=== PATIENT | male | born 1985 | race Caucasian/White ===

== ENCOUNTER 2017-11-19 17:09 | Inpatient (IN) | payer SELFPAY ==
[2017-11-19] MEDS ORDERED: NACL 0.9% 1000 ML 1,000 ML IV ONE (17:23)
[2017-11-19 19:04] LABS: Basophils % (Auto) 0.3 % (0.0-1.8); Eosinophils # (Auto) 0.1 K/mm3 (0.0-0.4); Hematocrit 44.1 % (35.5-45.6); Lymphocytes # (Auto) 1.1 K/mm3 (1.2-5.4); Lymphocytes % (Auto) 9.9 % (13.4-35.0); Mean Corpuscular HGB Conc 34 % (32-34); Mean Corpuscular Hemoglobin 31 pg (28-32); Mean Corpuscular Volume 92 fl (84-94); Monocytes # (Auto) 0.6 K/mm3 (0.0-0.8); Monocytes % (Auto) 5.7 % (0.0-7.3); Platelet Count 161 K/mm3 (140-440); Red Blood Count 4.81 M/mm3 (3.65-5.03); Red Cell Distribution Width 12.8 % (13.2-15.2)
--- NOTE | 2017-11-19 19:14 | XRay Report ---
FINAL REPORT EXAM: XR ABDOMEN 2V HISTORY: pain TECHNIQUE: Frontal upright view of the abdomen Comparison: None FINDINGS: The bowel gas pattern is nonspecific. There is a distended air-filled loop of small bowel in the left abdomen with an air-fluid level. There is a [id number] amount of stool in portions of the colon. There is no evidence of pneumoperitoneum nor organomegaly. The bony structures are unremarkable. IMPRESSION: 1. Nonspecific bowel gas pattern.
[2017-11-19 19:25] LABS: Alanine Aminotransferase 22 units/L (7-56); Albumin 4.7 g/dL (3.9-5); BUN/Creatinine Ratio 20; Blood Urea Nitrogen 16 mg/dL (9-20); Calcium 9.8 mg/dL (8.4-10.2); Hemolysis Index 8
[2017-11-19 20:06] LABS: Lipase 6137 units/L (13-60)
[2017-11-19] MEDS ORDERED: NACL 0.9% 1000 ML 2,000 ML IV ONE (23:53)
[2017-11-19] MEDS ORDERED: ZOFRAN IV ONE (23:53)
[2017-11-19] MEDS ORDERED: DILAUDID IV ONE (23:53)
--- NOTE | 2017-11-19 23:56 | Emergency Department Report ---
HPI - General Chief Complaint: Abdominal Pain Time Seen by Provider: 11/19/17 23:43 - HPI HPI: The patient is a 32-year-old male who presents for evaluation of abdominal pain. The patient reports epigastric abdominal pain for the past one day, moderate to severe, sharp in quality, associated with nausea. The patient denies fever, chills, night sweats, diarrhea, blood in the stool, dark tarry stool, dysuria, hematuria, flank pain, genital discharge, inability to pass flatus. ED Past Medical Hx - Past Medical History Additional medical history: appendix 2 years - Surgical History Hx Appendectomy: Yes (here at [facility]) - Social History Smoking Status: Current Every Day Smoker Substance Use Type: None - Medications Home Medications: Home Medications Medication Instructions Recorded Confirmed Last Taken Type HYDROcodone/APAP 5-325 [[place] 1 each PO Q4HR PRN #20 tablet 08/02/15 Unknown Rx 5/325] levoFLOXacin [Levaquin TAB] 500 mg PO QDAY #4 tablet 08/02/15 Unknown Rx metroNIDAZOLE [Flagyl] 500 mg PO Q8HR #12 tablet 08/02/15 Unknown Rx ED Review of Systems ROS: Stated complaint: APPENDIX REMOVED/PAIN Other details as noted in HPI Constitutional: denies: fever ENT: denies: throat or neck pain Respiratory: denies: cough, shortness of breath Cardiovascular: denies: chest pain Endocrine: denies unexplained weight loss or gain Gastrointestinal: reports: abdominal pain, nausea Genitourinary: denies: dysuria Musculoskeletal: denies: leg swelling Skin: denies: rash Neurological: denies: headache Hematological/Lymphatic: denies: easy bleeding or easy bruising Psych: denies sadness or hopelessness Physical Exam - Physical Exam Vital Signs: Vital Signs 11/19/17 17:14 Temperature 98.5 F Pulse Rate 60 Respiratory 18 Rate Blood Pressure 118/74 Physical Exam: General: well-nourished, well-developed, no acute distress Head: Normocephalic, atraumatic Eyes: normal sclera ENT: Mucous membranes are pink and moist Neck: trachea midline, neck supple, No neck stiffness, no cervical adenopathy Respiratory: Breath sounds equal bilaterally, no wheezing, rales, or rhonchi Cardio: S1 and S2 present, no murmurs, rubs, gallops, capillary refill is brisk Abdomen: Normoactive bowel sounds, soft abdomen, epigastric tenderness palpation present, no rigidity, no guarding or rebound tenderness Musc: No pitting edema Skin: No rash Neuro: no facial drooping, normal speech Psych: Normal affect ED Course Vital Signs 11/19/17 17:14 Temperature 98.5 F Pulse Rate 60 Respiratory 18 Rate Blood Pressure 118/74 ED Medical Decision Making - Lab Data Result diagrams: 11/19/17 18:32 11/19/17 18:32 - Medical Decision Making The patient was seen and examined by myself. The patient is placed on a quality assurance monitor chassis and continuous pulse ox. On initial evaluation, the patient was found to be in no distress. Evaluation orders are placed. IV access is established and the patient is given 1 L normal saline fluid bolus and Zofran for nausea, and IV analgesic for pain. Lab results reveal significant elevated lipase level, consistent with acute pancreatitis. CT scan abdomen and pelvis confirms acute pancreatitis. The patient was reevaluated and found to remain with epigastric pain despite multiple doses of IV analgesia. As patient pain is intractable patient will be admitted for continued cessation close monitoring. The on-call hospitalist service was contacted. They agreed to admit the patient for further treatment and close monitoring. The ED admit order was placed. The patient was admitted in guarded condition. Critical care attestation.: If time is entered above; I have spent that time in minutes in the direct care of this critically ill patient, excluding procedure time. ED Disposition Clinical Impression: Acute generalized abdominal pain, Nausea alone, Dehydration Acute pancreatitis Qualifiers: Pancreatitis type: unspecified pancreatitis type Acute pancreatitis complication: unspecified Qualified Code(s): K85.90 - Acute pancreatitis without necrosis or infection, unspecified Disposition: OP ADMIT IP TO THIS HOSP Is pt being admited?: Yes Does the pt Need Aspirin: Yes Condition: Serious Referrals: PRIMARY CARE, [Primary Care Provider] - 3-5 Days Time of Disposition: 23:56
[2017-11-20 00:33] LABS: INR 0.94 (0.87-1.13)
[2017-11-20 00:34] LABS: Partial Thromboplastin Time 26.6 Sec. (24.2-36.6)
[2017-11-20 00:39] LABS: Alanine Aminotransferase 22 units/L (7-56); Albumin 4.8 g/dL (3.9-5)
[2017-11-20 01:13] LABS: Bilirubin,Direct < 0.2 mg/dL (0-0.2)
--- NOTE | 2017-11-20 01:37 | Cat Scan Report ---
FINAL REPORT PROCEDURE: CT ABDOMEN PELVIS W CON TECHNIQUE: Computerized axial tomography of the abdomen and pelvis was performed after the IV injection of iodinated nonionic contrast. HISTORY: RLQ abdominal pain COMPARISON: 07/29/2015 FINDINGS: Visualized lower thorax: No significant abnormality. Liver: Normal size and attenuation. Spleen: Normal size and attenuation. Gallbladder and biliary system: Normal. Pancreas: There is peripancreatic edema suggesting pancreatitis. There is no intrinsic mass, abscess or pseudocyst.. Adrenals: Normal. Kidneys: Normal. GI tract: There is no bowel obstruction, colitis or enteritis. There has been an appendectomy per. Lymph nodes and mesentery: Normal. Vasculature: Normal. Bladder: Normal. Reproductive organs: Normal. Peritoneum: There is no ascites or free air, abscess or adenopathy.. Musculoskeletal structures: No significant abnormality. Other: None. IMPRESSION: Acute pancreatitis.
[2017-11-20] MEDS ORDERED: SUBLIMAZE IV ONE (01:39)
[2017-11-20] MEDS ORDERED: ZOFRAN IV ONE (01:39)
--- NOTE | 2017-11-20 01:45 | Ultrasound Report ---
FINAL REPORT PROCEDURE: US ABDOMEN LIMITED TECHNIQUE: Real-time sonography in multiple planes of the gallbladder fossa and CBD with imaging of the adjacent liver, pancreas, and right kidney was performed with image documentation. CPT 59078 HISTORY: RUQ and epigastric pain COMPARISON: No prior studies are available for comparison. FINDINGS: Liver: Normal size and echotexture with no evidence of cystic or solid mass lesion. Gallbladder: Fluid filled. No gallstones, wall thickening, pericholecystic fluid, or sonographic Gay's sign . Intrahepatic bile ducts: Normal . Extrahepatic bile ducts: Normal . Pancreas: Normal as visualized with suboptimal depiction of the pancreatic tail. Right kidney: Normal echotexture. No focal renal mass, calculus, or hydronephrosis. Other: No free fluid. IMPRESSION: Normal Examination
[2017-11-20] MEDS ORDERED: SODIUM CHLORIDE FLUSH SYRINGE 10 ML IV PRN (02:48)
[2017-11-20] MEDS ORDERED: ZOFRAN IV PRN (02:48)
[2017-11-20] MEDS ORDERED: PERCOCET 5/325 PO PRN (02:48)
[2017-11-20] MEDS ORDERED: TYLENOL PO PRN (02:48)
[2017-11-20] MEDS ORDERED: DILAUDID IV PRN (02:53)
[2017-11-20] MEDS ORDERED: NACL 0.9% 1000 ML 1,000 ML IV ONE (02:54)
[2017-11-20 03:10] LABS: Bilirubin,Urine NEG (Negative); Blood,Urine NEG (Negative); Color,Urine Yellow (Yellow); Mucus,Urine FEW /HPF; Protein,Urine <15 mg/dL mg/dL (Negative); Urobilinogen,Urine < 2.0 mg/dL (<2.0); WBC,Urine < 1.0 /HPF (0.0-6.0)
--- NOTE | 2017-11-20 03:46 | History and Physical Report ---
History of Present Illness Date of examination: 11/20/17 Date of admission: 11/20/17 02:48 Chief complaint: Upper abdominal pain History of present illness: Patient is a 32 year old male with no known past medical history who presented to the ED on account of a day history of epigastric pain. Of note, an per diem interpreter was used to obtain this history since patient speaks very little [place]. He described it as sharp in character, rated 10 over 10 and radiating to the sides. Pain waxes and wanes. No known aggravating or relieving factors. He denies nausea, vomiting, fever, chills, constipation, diarrhea, dysuria or frequency. No chest pain, shortness of breath, palpitation, cough, leg swelling, headaches, dizziness, syncope or loss of consciousness. No prior history of presenting complaint Past History Past Medical History: No medical history Past Surgical History: appendectomy Social history: smoking (he has been smoking cigarettes since 19 years old and currently smokes few sticks per day), alcohol abuse (patient has been drinking since 19 years old and he reports drinking liquor twice a week), other (he denies illicit drug use) Family history: no significant family history (reviewed and noncontributory) Medications and Allergies Allergies Allergy/AdvReac Type Severity Reaction Status Date / Time No Known Allergies Allergy Unverified 07/29/15 16:27 Home Medications Medication Instructions Recorded Confirmed Last Taken Type HYDROcodone/APAP 5-325 [[place] 1 each PO Q4HR PRN #20 tablet 08/02/15 Unknown Rx 5/325] levoFLOXacin [Levaquin TAB] 500 mg PO QDAY #4 tablet 08/02/15 Unknown Rx metroNIDAZOLE [Flagyl] 500 mg PO Q8HR #12 tablet 08/02/15 Unknown Rx Active Meds: Active Medications Acetaminophen (Tylenol) 650 mg PO Q4H PRN PRN Reason: Pain MILD(1-3)/Fever >100.5/AGGARWAL Docusate Sodium (Colace) 100 mg PO BID KRISTINE Famotidine (Pepcid) 20 mg IV DAILY KRISTINE Hydromorphone HCl (Dilaudid) 1 mg IV Q4H PRN PRN Reason: Pain , Severe (7-10) Sodium Chloride (Nacl 0.9% 1000 Ml) 1,000 mls @ 999 mls/hr IV BOLUS ONE Stop: 11/20/17 03:54 Sodium Chloride (Nacl 0.9% 1000 Ml) 1,000 mls @ 150 mls/hr IV DIRECT KRISTINE Ondansetron HCl (Zofran) 4 mg IV Q6H PRN PRN Reason: Nausea And Vomiting Oxycodone/Acetaminophen (Percocet 5/325) 1 tab PO Q4H PRN PRN Reason: Pain, Moderate (4-6) Sodium Chloride (Sodium Chloride Flush Syringe 10 Ml) 10 ml IV BID KRISTINE Sodium Chloride (Sodium Chloride Flush Syringe 10 Ml) 10 ml IV PRN PRN PRN Reason: LINE FLUSH Review of Systems All systems: negative (except as documented in the HPI, all other systems were reviewed and negative) Exam - Constitutional Vitals: Temp Pulse Resp BP Pulse Ox 98.9 F 59 L 14 110/64 98 11/20/17 01:00 11/20/17 01:00 11/20/17 01:58 11/20/17 01:00 11/20/17 01:00 General appearance: Present: no acute distress, well-nourished - EENT Eyes: Present: PERRL, EOM intact ENT: hearing intact, clear oral mucosa - Neck Neck: Present: supple, normal ROM - Respiratory Respiratory effort: normal Respiratory: bilateral: CTA - Cardiovascular Rhythm: regular Heart Sounds: Present: S1 & S2. Absent: rub, click - Extremities Extremities: pulses symmetrical, No edema Peripheral Pulses: within normal limits - Abdominal General gastrointestinal: Present: soft, tender (lower abdomen and epigastric), non-distended, normal bowel sounds - Integumentary Integumentary: Present: clear, warm, dry - Musculoskeletal Musculoskeletal: gait normal, strength equal bilaterally - Psychiatric Psychiatric: appropriate mood/affect, intact judgment & insight - Neurologic Neurologic: CNII-XII intact, moves all extremities Results - Labs CBC & Chem 7: 11/19/17 18:32 11/19/17 18:32 Labs: Laboratory Last Values WBC 10.6 K/mm3 (4.5-11.0) 11/19/17 18:32 RBC 4.81 M/mm3 (3.65-5.03) 11/19/17 18:32 Hgb 15.0 gm/dl (11.8-15.2) 11/19/17 18:32 Hct 44.1 % (35.5-45.6) 11/19/17 18:32 MCV 92 fl (84-94) 11/19/17 18:32 MCH 31 pg (28-32) 11/19/17 18:32 MCHC 34 % (32-34) 11/19/17 18:32 RDW 12.8 % (13.2-15.2) L 11/19/17 18:32 Plt Count 161 K/mm3 (140-440) 11/19/17 18:32 Lymph % (Auto) 9.9 % (13.4-35.0) L 11/19/17 18:32 [place] % (Auto) 5.7 % (0.0-7.3) 11/19/17 18: Eos % (Auto) 1.0 % (0.0-4.3) 11/19/17 18:32 Baso % (Auto) 0.3 % (0.0-1.8) 11/19/17 18:32 Lymph # 1.1 K/mm3 (1.2-5.4) L 11/19/17 18:32 [place] # 0.6 K/mm3 (0.0-0.8) 11/19/17 18:32 Eos # 0.1 K/mm3 (0.0-0.4) 11/19/17 18:32 Baso # 0.0 K/mm3 (0.0-0.1) 11/19/17 18:32 Seg Neutrophils % 83.1 % (40.0-70.0) H 11/19/17 18:32 Seg Neutrophils # 8.8 K/mm3 (1.8-7.7) H 11/19/17 18:32 PT 13.1 Sec. (12.2-14.9) 11/20/17 00:12 INR 0.94 (0.87-1.13) 11/20/17 00:12 APTT 26.6 Sec. (24.2-36.6) 11/20/17 00:12 Sodium 138 mmol/L (137-145) 11/19/17 18:32 Potassium 4.1 mmol/L (3.6-5.0) 11/19/17 18:32 Chloride 100.8 mmol/L (98-107) 11/19/17 18:32 Carbon Dioxide 27 mmol/L (22-30) 11/19/17 18:32 Anion Gap 14 mmol/L 11/19/17 18:32 BUN 16 mg/dL (9-20) 11/19/17 18:32 Creatinine 0.8 mg/dL (0.8-1.5) 11/19/17 18:32 Estimated GFR > 60 ml/min 11/19/17 18:32 BUN/Creatinine Ratio 20 % 11/19/17 18:32 Glucose 93 mg/dL (75-100) 11/19/17 18:32 Calcium 9.8 mg/dL (8.4-10.2) 11/19/17 18:32 Total Bilirubin 0.30 mg/dL (0.1-1.2) 11/20/17 00:12 Direct Bilirubin < 0.2 mg/dL (0-0.2) 11/20/17 00:12 Indirect Bilirubin 0.1 mg/dL 11/20/17 00:12 AST 22 units/L (5-40) 11/20/17 00:12 ALT 22 units/L (7-56) 11/20/17 00:12 Alkaline Phosphatase 70 units/L (35-129) 11/20/17 00:12 Lactate Dehydrogenase 201 units/L (91-180) H 11/20/17 00:12 Total Protein 7.7 g/dL (6.3-8.2) 11/20/17 00:12 Albumin 4.8 g/dL (3.9-5) 11/20/17 00:12 Albumin/Globulin Ratio 1.7 % 11/20/17 00:12 Lipase 6137 units/L (13-60) H 11/19/17 18:32 Urine Color Yellow (Yellow) 11/19/17 Unknown Urine Turbidity Clear (Clear) 11/19/17 Unknown Urine pH 7.0 (5.0-7.0) 11/19/17 Unknown Ur Specific [place] 1.039 (1.003-1.030) H 11/19/17 Unknown Urine Protein <15 mg/dl mg/dL (Negative) 11/19/17 Unknown Urine Glucose (UA) Neg mg/dL (Negative) 11/19/17 Unknown Urine Ketones Neg mg/dL (Negative) 11/19/17 Unknown Urine Blood Neg (Negative) 11/19/17 Unknown Urine Nitrite Neg (Negative) 11/19/17 Unknown Urine Bilirubin Neg (Negative) 11/19/17 Unknown Urine Urobilinogen < 2.0 mg/dL (<2.0) 11/19/17 Unknown Ur Leukocyte Esterase Neg (Negative) 11/19/17 Unknown Urine WBC (Auto) < 1.0 /HPF (0.0-6.0) 11/19/17 Unknown Urine RBC (Auto) 2.0 /HPF (0.0-6.0) 11/19/17 Unknown Urine Mucus Few /HPF 11/19/17 Unknown Assessment and Plan Assessment and plan: Acute alcoholic pancreatitis -Patient will be placed on nothing by mouth, IV fluid and when necessary narcotics for pain control -CT abdomen/abdomen ultrasound negative for gallstones History of chronic alcohol use -Counseled on cessation Prophylaxis -DVT prophylaxis with SCD and GI prophylaxis with famotidine Time spent: 30 minutes Disposition: Discharge will depend on clinical course
[2017-11-20] MEDS: NACL 0.9% 1000 ML 1,000 ML IV SCH ×4 (04:00→23:19)
[2017-11-20] MEDS ORDERED: NACL 0.9% 1000 ML 1,000 ML ONE ×2 (04:15→04:52)
[2017-11-20] MEDS: PEPCID IV SCH (10:27)
[2017-11-20] MEDS: COLACE PO SCH ×2 (10:27→21:45)
[2017-11-20] MEDS: SODIUM CHLORIDE FLUSH SYRINGE 10 ML IV SCH ×2 (10:28→21:45)
[2017-11-21] MEDS: NACL 0.9% 1000 ML 1,000 ML IV SCH ×3 (06:15→21:48)
[2017-11-21 06:58] LABS: BUN/Creatinine Ratio 10; Blood Urea Nitrogen 7 mg/dL (9-20); Hemolysis Index 2
[2017-11-21 07:30] LABS: Lipase 1271 units/L (13-60)
[2017-11-21] MEDS: COLACE PO SCH ×2 (09:30→21:44)
[2017-11-21] MEDS: SODIUM CHLORIDE FLUSH SYRINGE 10 ML IV SCH ×2 (09:30→21:45)
[2017-11-21] MEDS: PEPCID IV SCH (09:30)
--- NOTE | 2017-11-21 17:33 | Progress Note ---
Assessment and Plan Assessment and plan: Upper abdominal pain History of present illness: Patient is a 32 year old male with no known past medical history who presented to the ED on account of a day history of epigastric pain. Of note, an interpreter for the deaf was used to obtain this history since patient speaks very little [place]. He described it as sharp in character, rated 10 over 10 and radiating to the sides. Pain waxes and wanes. No known aggravating or relieving factors. He denies nausea, vomiting, fever, chills, constipation, diarrhea, dysuria or frequency. No chest pain, shortness of breath, palpitation, cough, leg swelling, headaches, dizziness, syncope or loss of consciousness. No prior history of presenting complaint Past History Past Medical History: No medical history Acute alcoholic pancreatitis -Patient will be placed on nothing by mouth, IV fluid and when necessary narcotics for pain control -CT abdomen/abdomen ultrasound negative for gallstones History of chronic alcohol use -Counseled on cessation Prophylaxis -DVT prophylaxis with SCD and GI prophylaxis with famotidine Time spent: 30 minutes Disposition: Discharge will depend on clinical course History Interval history: Review of systems Constitutional: No fevers, no malaise, no joint pains CVS: No chest pain, no orthopnea, no dyspnea on exertion, no pedal edema GI: No abdominal pain, no diarrhea, no vomiting, no constipation Respiratory: No shortness of breath, no wheezing, no coughing Hospitalist Physical - Physical exam Narrative exam: General.: Appears well, no distress, nontoxic HEENT: Moist mucous membranes, extraocular muscles intact, no lymphadenopathy Neck: supple Cardiac: S1-S2 heard Lungs: clear to auscultation bilaterally Abdomen: soft , nontender, nondistended, bowel sounds positive Extremities: no edema clubbing or cyanosis Skin: no rash or lesions Neurologic: no gross focal deficits Psych: appropriate behavior, appropriate mood, corporative, judgment intact - Constitutional Vitals: Temp Pulse Resp BP Pulse Ox 98.2 F 49 L 16 101/60 99 11/21/17 12:16 11/21/17 12:16 11/21/17 12:16 11/21/17 12:16 11/21/17 12:16 General appearance: Present: no acute distress, well-nourished Results - Labs CBC & Chem 7: 11/19/17 18:32 11/21/17 05:16 Labs: Laboratory Last Values WBC 10.6 K/mm3 (4.5-11.0) 11/19/17 18: RBC 4.81 M/mm3 (3.65-5.03) 11/19/17 18: Hgb 15.0 gm/dl (11.8-15.2) 11/19/17 18: Hct 44.1 % (35.5-45.6) 11/19/17 18: MCV 92 fl (84-94) 11/19/17 18: MCH 31 pg (28-32) 11/19/17 18: MCHC 34 % (32-34) 11/19/17 18: RDW 12.8 % (13.2-15.2) L 11/19/17: Plt Count 161 K/mm3 (140-440) 11/19/17 18: Lymph % (Auto) 9.9 % (13.4-35.0) L 11/19/17 18: [place] % (Auto) 5.7 % (0.0-7.3) 11/19/17 18: Eos % (Auto) 1.0 % (0.0-4.3) 11/19/17 18: Baso % (Auto) 0.3 % (0.0-1.8) 11/19/17 18: Lymph # 1.1 K/mm3 (1.2-5.4) L 11/19/17 18: [place] # 0.6 K/mm3 (0.0-0.8) 11/19/17 18: Eos # 0.1 K/mm3 (0.0-0.4) 11/19/17 18: Baso # 0.0 K/mm3 (0.0-0.1) 11/19/17 18: Seg Neutrophils % 83.1 % (40.0-70.0) H 11/19/17 18: Seg Neutrophils # 8.8 K/mm3 (1.8-7.7) H 11/19/17 18:32 PT 13.1 Sec. (12.2-14.9) 11/20/17 00:12 INR 0.94 (0.87-1.13) 11/20/17 00:12 APTT 26.6 Sec. (24.2-36.6) 11/20/17 00:12 Sodium 144 mmol/L (137-145) 11/21/17 05:16 Potassium 3.9 mmol/L (3.6-5.0) 11/21/17 05:16 Chloride 105.3 mmol/L (98-107) 11/21/17 05:16 Carbon Dioxide 26 mmol/L (22-30) 11/21/17 05:16 Anion Gap 17 mmol/L 11/21/17 05:16 BUN 7 mg/dL (9-20) L 11/21/17 05:16 Creatinine 0.7 mg/dL (0.8-1.5) L 11/21/17 05:16 Estimated GFR > 60 ml/min 11/21/17 05:16 BUN/Creatinine Ratio 10 % 11/21/17 05:16 Glucose 78 mg/dL (75-100) 11/21/17 05:16 Calcium 9.0 mg/dL (8.4-10.2) 11/21/17 05:16 Magnesium 1.90 mg/dL (1.7-2.3) 11/21/17 05:16 Total Bilirubin 0.30 mg/dL (0.1-1.2) 11/20/17 00:12 Direct Bilirubin < 0.2 mg/dL (0-0.2) 11/20/17 00:12 Indirect Bilirubin 0.1 mg/dL 11/20/17 00:12 AST 22 units/L (5-40) 11/20/17 00:12 ALT 22 units/L (7-56) 11/20/17 00:12 Alkaline Phosphatase 70 units/L (35-129) 11/20/17 00:12 Lactate Dehydrogenase 201 units/L (91-180) H 11/20/17 00:12 Total Protein 7.7 g/dL (6.3-8.2) 11/20/17 00:12 Albumin 4.8 g/dL (3.9-5) 11/20/17 00:12 Albumin/Globulin Ratio 1.7 % 11/20/17 00:12 Lipase 1271 units/L (13-60) H 11/21/17 05:16 Urine Color Yellow (Yellow) 11/19/17 Unknown Urine Turbidity Clear (Clear) 11/19/17 Unknown Urine pH 7.0 (5.0-7.0) 11/19/17 Unknown Ur Specific [place] 1.039 (1.003-1.030) H 11/19/17 Unknown Urine Protein <15 mg/dl mg/dL (Negative) 11/19/17 Unknown Urine Glucose (UA) Neg mg/dL (Negative) 11/19/17 Unknown Urine Ketones Neg mg/dL (Negative) 11/19/17 Unknown Urine Blood Neg (Negative) 11/19/17 Unknown Urine Nitrite Neg (Negative) 11/19/17 Unknown Urine Bilirubin Neg (Negative) 11/19/17 Unknown Urine Urobilinogen < 2.0 mg/dL (<2.0) 11/19/17 Unknown Ur Leukocyte Esterase Neg (Negative) 11/19/17 Unknown Urine WBC (Auto) < 1.0 /HPF (0.0-6.0) 11/19/17 Unknown Urine RBC (Auto) 2.0 /HPF (0.0-6.0) 11/19/17 Unknown Urine Mucus Few /HPF 11/19/17 Unknown
[2017-11-22] MEDS: NACL 0.9% 1000 ML 1,000 ML IV SCH ×2 (05:44→10:23)
[2017-11-22] MEDS: COLACE PO SCH (10:23)
[2017-11-22] MEDS: PEPCID IV SCH (10:23)
[2017-11-22] MEDS: SODIUM CHLORIDE FLUSH SYRINGE 10 ML IV SCH (10:23)
[2017-11-22 13:17] VITALS: BP 98/56
== END 2017-11-22 18:47 | disposition home or self-care (01) | DRG 440 ==
LOC: ED 17:09 → 3A 11-20 02:48
PROVIDERS: ADMIT Internal Medicine; ATTEND Internal Medicine
DX: K85.20 Alcohol induced acute pancreatitis without necrosis or infection (principal); Y90.0 Blood alcohol level of less than 20 mg/100 ml; F10.10 Alcohol abuse, uncomplicated; F17.200 Nicotine dependence, unspecified, uncomplicated; Z90.49 Acquired absence of other specified parts of digestive tract; Z71.41 Alcohol abuse counseling and surveillance of alcoholic
CPT/HCPCS: 36415; 74019; 74177; 76705; 80048; 80053; 80074; 81001; 83615; 83690; 83735; 85025; 85610; 85730; 96361; 96374; 96375; J2405; J3010; J7030; Q9967